=== PATIENT | female | born 2000 | race Caucasian/White ===

== ENCOUNTER 2020-04-13 15:53 | Emergency (ER) | payer BC ==
--- NOTE | 2020-04-13 16:29 | RAD ---
Radiograph abdomen one view: HISTORY: 19-year-old female with vaginal bleeding. FINDINGS: There is an IUD slightly to the right of midline in the mid pelvis. Bowel gas pattern is normal. No urolithiasis. No osseous abnormality. IMPRESSION: 1. Intrauterine device. 2. Otherwise negative.
[2020-04-13 16:41] LABS: Pregnancy Test - Urine (BHCG) Negative (Negative); Pregu Control Background? CLEAR/WHITE (CLR/WHITE); Pregu Control Bar Appear? YES (CONTROL BAR); Specific Gravity 1.021 (1.002-1.036)
[2020-04-13 16:44] LABS: Bilirubin Negative (Negative); Blood, Urine 3+ (Negative); Clarity Turbid (Clear); Glucose, Urine (Dipstick) Normal (Negative); Ketone, Urine Negative (Negative); Leukocyte 25 Leu/uL (Negative); Nitrite Negative (Negative); Protein, Urine (Dipstick) 30 mg/dL (Neg-Trace); RBC/HPF Greater than 50 HPF (0-3); Specific Gravity, Urine 1.021 (1.002-1.036); Squamous Epithelial 0-3 HPF (0-3); Urobilinogen Normal mg/dL (Less than 2)
[2020-04-13 16:45] LABS: Bacteria/HPF 1+ HPF (None Seen); Sperm/HPF 4+ HPF (None Seen)
== END 2020-04-13 17:09 | disposition home or self-care (01) ==
LOC: ERS 15:53
DX: N72 Inflammatory disease of cervix uteri (principal)
CPT/HCPCS: 74018; 81003; 81015; 81025